=== PATIENT | female | born 1960 | race Caucasian/White ===

== ENCOUNTER 2021-02-07 13:23 | Emergency (ER) | payer MEDICAID, OTHER, SELFPAY ==
[~2021-02-07] VITALS: Ht 162.6 cm; Wt 54.0 kg
[2021-02-07 13:28] VITALS: BP 142/70
== END 2021-02-07 18:07 | disposition home or self-care (01) ==
LOC: ED 17:25
DX: S52.511A Displaced fracture of right radial styloid process, initial encounter for closed fracture (principal); W01.0XXA Fall on same level from slipping, tripping and stumbling without subsequent striking against object, initial encounter; Y93.89 Activity, other specified; Y92.89 Other specified places as the place of occurrence of the external cause; Y99.8 Other external cause status; M19.90 Unspecified osteoarthritis, unspecified site; F17.210 Nicotine dependence, cigarettes, uncomplicated
CPT/HCPCS: 29125; 99283